=== PATIENT | male | born 1980 | race Caucasian/White ===

== ENCOUNTER 2016-07-28 19:02 | Emergency (ER) | payer BC ==
[2016-07-28 19:04] VITALS: BMI 31.6
[2016-07-28 19:13] VITALS: TEMP 98.7
--- NOTE | 2016-07-28 20:09 | DIRPT ---
CLINICAL DATA: Finger stuck in a wood splinter. Crush injury to the fifth digit. Lacerations to the fourth digit. EXAM: LEFT HAND - COMPLETE 3+ VIEW COMPARISON: Left third finger 03/30/2016 FINDINGS: Overlying gauze material limits evaluation. There are multiple comminuted crush fractures throughout the distal phalanx of the left fifth finger and also involving the distal aspect of the middle phalanx. Fracture lines extend to the articular surface of the distal interphalangeal joint and there is distraction and displacement of fracture fragments. Skin surface defect and soft tissue swelling is demonstrated in the fourth finger about the proximal interphalangeal joint. There is suggestion of possible foreign bodies along the ulnar side soft tissues of the fourth middle phalanx but this could represent artifact from overlying structures. No other fractures identified. IMPRESSION: Multiple comminuted and displaced crush fractures throughout the distal phalanx of the left fifth finger and also involving the distal aspect of the middle phalanx fifth finger. Fracture lines extend to the distal interphalangeal joint articular surface. Skin surface defect in the midportion of the fourth finger with possible soft tissue foreign bodies present. Electronically Signed By: Sunny Ashley M.D. On: 07/28/2016 20:07
[2016-07-28] MEDS ORDERED: IBUPROFEN 800 MG TAB PO ONE (20:24)
[2016-07-28] MEDS ORDERED: OXYCODONE HCL 5 MG TABLET PO ONE (20:53)
[2016-07-28] MEDS ORDERED: LIDOCAINE 2% 5 ML (PRESERVATIVE FREE) VIAL INF ONE (20:53)
[2016-07-28] MEDS ORDERED: CEFAZOLIN 1 GM in D5W 100 ML IV ONE (20:55)
--- NOTE | 2016-07-28 21:32 | EDPRACDOC ---
- General Information Chief Complaint: Wound Mode of Arrival:: Car Home Medications: Home Medications Cephalexin Monohydrate [Keflex] 500 mg PO Q8H #30 cap 07/28/16 Oxycodone Immediate Release [Oxycodone Immediate Release (OxyIR)] 5 mg PO Q6H PRN #14 tab 07/28/16 Allergies/Adverse Reactions: Allergies Allergy/AdvReac Type Severity Reaction Status Date / Time No Known Allergies Allergy Verified 03/30/16 17:39 - History of Present Illness Onset: 1729 today HPI: PATIENT HAD LEFT HAND 5TH DIGIT CAUGHT IN A HYDRAULIC WOOD SPLITTER. CRUSH INJURY TO 5TH DIGIT. LACERATION ALONG MEDIAL SURFACE - Location Left 5th Digit Mechanism: Reports: Crush - Tetanus Status Last Tetanus: Yes - Pain Pain Severity: Moderate Bleeding: Reports: Controlled ED Past Medical History - History Reviewed Yes Nurses notes reviewed and agree except as marked Travel Outside of [place] in the Last 3 Months?: No - Patient Medical History Psychological History: Denies: Depression Systemic History: Denies: Cancer - Social Medical History Smoking Status: Heavy tobacco smoker (5 or more cigarettes/day or daily pipe/ cigar) ETOH: None Substance Abuse: None Lives With: Family Lives In: Home EDM Review of Systems - Review of Systems ROS Negative Except as Marked: Yes All systems reviewed and were negative except as marked Constitutional: No Symptoms Reported. negative: Fever, Chills, Weakness, Fatigue, Loss of Appetite Eyes: No Symptoms Reported. negative: Redness, Blurred Vision, Double Vision, Discharge, Pain, Light Sensitive, Photophobia Ears: No Symptoms Reported. negative: Pain, Hearing Loss, Drainage, Ear Pulling Throat: No Symptoms Reported. negative: Pain, Swelling Nose: No Symptoms Reported. negative: Congestion, Bleeding, Discharge, Injection, Swelling, Deformity, Ecchymosis, Tender, Abrasion, Laceration Mouth: No Symptoms Reported. negative: Pain, Drooling Respiratory: No Symptoms Reported. negative: Cough, Brassy Cough, Barky Cough, Shortness of Breath, Wheezing, Hemoptysis Cardiovascular: No Symptoms Reported. negative: Chest Pain, Palpitations, Syncope, Edema, Orthopnea, PND, Skin Mottling, Cyanosis Gastrointestinal: No Symptoms Reported. negative: Pain, Constipation, Nausea, Vomiting, Diarrhea, Melena, Formula Intolerance Genitourinary: No Symptoms Reported. negative: Dysuria, Hematuria, Frequency, Discharge, Bleeding, Testicular Pain, Neurological: No Symptoms Reported. negative: Headache, Dizziness, Seizure, Numbness, Weakness, Speech Difficulty, Gait Difficulty Musculoskeletal: No Symptoms Reported. negative: Neck, Chestwall, Ribs, Back, Shoulder, Arm, Elbow, Forearm, Wrist, Hand, Pelvis, Hip, Femur, Knee, Leg, Ankle , Foot Integumentary: Wound. negative: Bruising, Itching, Rash Allergic/Immunologic: No Symptoms Reported. negative: Hives, Itching Hematologic: No Symptoms Reported. negative: Lymphadenopathy, Easy Bruising, Easy Bleeding Endocrine: No Symptoms Reported. negative: Weight Gain, Weight Loss Psychiatric: No Symptoms Reported. negative: Anxiety, Depression, Hallucinations, Insomnia, Suicidal - Physical Exam Constitutional: Alert (Awake), Distress (MILD) Oriented to: Time, Person, Place Last recorded Vital Signs: Last Vital Signs Temp 98.7 F 07/28/16 19:10 Pulse 87 07/28/16 19:10 Resp 20 07/28/16 19:10 BP 170/85 07/28/16 19:10 Pulse Ox 98 07/28/16 19:10 Oxygen Pulse Oxygen Saturation 98 O2 Device Room Air Oxygen Flow Rate Fraction of Inspired Oxygen ( FIO2) - HEENT Head: Normal ( normocephalic) Eye Exam: Normal (PERRL, EOMI, Sclera white) Oropharynx: Normal (Pharynx:Moist without exudate,Gums-no swelling) Tympanic Membrane: Normal ENT EAC: Normal TMJ: Normal Nose: No Symptoms Reported (septum midline) Neck: Normal (FROM, trachea at midline) - Respiratory/Cardiovascular Respiratory: Normal - CTA (BBS clear to auscultation without adventitious sounds ) Cardiovascular: Normal (RRR without murmur, gallop or rub) - GI Auscultation: Normal (NABS) Palpation: Normal (Soft,No rebound or guarding, non distended) Tenderness: Non tender Becerra's Sign: Negative - Musculoskeletal Back: Normal (Non-Tender) Extremities: Other (CRUDH INJURY LEFT 5TH DIGIT WITH SPLIT/COMPRESSION TYPE OF LACERATION 4 CM MEDIAL SURFACE) - Integumentary Skin: Warm, Dry Lymphatics: Normal (no adenopathy) - Neurologic Memory Impaired: Normal Motor Function: Normal (Normal tone, Pulses 2+ No cyanosis or edema, FROM) Cranial Nerve: Normal (CN II-X11 intact sensation, strength 5/5) Cerebellar: Normal Mood Description: Normal Perception: Normal ED Procedures - Suture/Laceration Suture #1 Left Medial Finger Wound Length (cm): 4 Wound's Depth, Shape: irregular, stellate Wound Explored: contaminated Irrigated w/ Saline (ccs): 1000 Betadine Prep?: Yes Anesthesia: 1% Lidocaine Volume Anesthetic (ccs): 4 Wound Debrided: minimal Wound Margins: Revised Wound Repaired With: Sutures Suture Size/Type: 5:0, nylon Number of Sutures: 8 (MATRESS SUTURES TO OBTAIN CLOSURE ON TENSION) Layer Closure?: No Sterile Dressing Applied?: Yes Splint Applied?: Yes - Splinting 1st splint Location: LEFT 5TH DIGIT Pre-Made Type: metal Splint: volar Pre-Proc Neuro Vasc Exam: normal Post-Proc Neuro Vasc Exam: normal Decision Time to Discharge: 21:35 - Departure Yes I personally saw and evaluated the patient. Disposition: Home Condition: Stable Final Diagnosis: LEFT FIFTH DIGIT LACERATION- REPAIR GENT, Finger fracture, left Finger laceration Qualifiers: Encounter type: initial encounter Qualified Code(s): S61.219A - Laceration without foreign body of unspecified finger without damage to nail, initial encounter Instructions: Care For Your Stitches (ED), Laceration (ED), Finger Fracture (ED ) Education/Counseling Given To: Patient, Family Member Education/Counseling Given Regarding: Diagnosis, Treatment, Prognosis, Follow Up Referrals: None,No Provider [Primary Care Provider] - One Week Sung Castanon MD [Staff Physician] - One Week Efrain Garrido MD [Staff Physician] - One Week Prescriptions: Continue Cephalexin Monohydrate [Keflex] 500 mg PO Q8H #30 cap Oxycodone Immediate Release [Oxycodone Immediate Release (OxyIR)] 5 mg PO Q6H PRN #14 tab PRN Reason: Pain Forms: Excuse Note
[2016-07-28 22:16] VITALS: BP 160/80; PULSE 84
== END 2016-07-28 22:15 | disposition home or self-care (01) ==
LOC: ED 19:02
DX: S62.607A Fracture of unspecified phalanx of left little finger, initial encounter for closed fracture (principal); S61.217A Laceration without foreign body of left little finger without damage to nail, initial encounter; W31.9XXA Contact with unspecified machinery, initial encounter; Y93.9 Activity, unspecified
CPT/HCPCS: 12002; 73130; 96365; 99283; J0690; J2001; J3490; J7060